=== PATIENT | female | born 1990 | race Two or more races ===

== ENCOUNTER 2017-12-06 19:20 | Emergency (ER) | payer MEDICAID ==
[~2017-12-06] VITALS: Ht 157.5 cm; Wt 48.1 kg
--- NOTE | 2017-12-06 20:43 | NUR ---
PT PRESENTED TO THE ER WITH A C/O RT SIDED ABD/PELVIC PAIN SINCE 1400 TODAY. PT TOOK ADVIL AT 1730 WITH NO RELIEF. PT HAS HX OF LT SIDED OOPHERECTOMY X 2YRS AGO. PT STATED THAT SHE CURRENTLY HAS A CYST ON HER RT OVARY AND IS WORRIED THAT HER PAIN IS DUE TO THAT. PT STATED THE THE PAIN IS 6/10 AND RADIATES TO THE BACK. URINE SAMPLE WAS OBTAINED AND SENT TO LAB.
--- NOTE | 2017-12-06 20:50 | NUR ---
[employer] IS AT THE BEDSIDE FOR BLOOD DRAW.
[2017-12-06 20:55] LABS: BASOPHILS # (AUTO) 0.1 /CMM (0.0-0.2); BASOPHILS % (AUTO) 1.1 % (0.0-2.0); EOSINOPHILS % (AUTO) 0.8 % (0.0-6.0); HEMATOCRIT 38 % (33-45); HEMOGLOBIN 13.2 g/dL (11.5-14.8); LYMPHOCYTES # (AUTO) 1.9 /CMM (0.8-4.8); LYMPHOCYTES % (AUTO) 38.8 % (20.0-44.0); MEAN CORPUSCULAR HEMOGLOBIN 30 PG (26.0-33.0); MEAN CORPUSCULAR HGB CONC 35 g/dl (31.0-36.0); MEAN CORPUSCULAR VOLUME 86 fL (82-100); MONOCYTES # (AUTO) 0.3 /CMM (0.1-1.30); MONOCYTES % (AUTO) 6.7 % (2.0-12.0); NEUTROPHILS # (AUTO) 2.7 /CMM (1.8-8.9); NEUTROPHILS % (AUTO) 52.6 % (43.0-81.0); PLATELET COUNT (AUTO) 202 /CMM (150-450); RED BLOOD CELL COUNT(AUTO) 4.43 MIL/uL (4.0-5.2)
[2017-12-06 20:57] LABS: APPEARANCE,URINE Clear (CLEAR); BILIRUBIN,URINE Negative (NEGATIVE); BLOOD, URINE Negative Ery/uL (NEGATIVE); COLOR,URINE Yellow (YELLOW); KETONES,URINE Trace (NEGATIVE); LEUKOCYTE ESTERASE ,URINE Negative (NEGATIVE); NITRITE, URINE Negative (NEGATIVE); PH,URINE 5.5 (5.0-8.0); PROTEIN,URINE Negative (NEGATIVE); UGLUCOSE Negative (NEGATIVE); UROBILINOGEN,URINE 0.2 EU/dL (0.2)
[2017-12-06 21:03] LABS: BACTERIA,URINE Few /HPF (None Seen); RBC,URINE NONE SEEN /HPF (0-2); SQUAMOUS EPITHELIAL CELL,UR Moderate /HPF (None Seen); WBC,URINE 0-2 /HPF (0-3)
[2017-12-06 21:04] LABS: CALCIUM, SERUM 9.1 mg/dL (8.5-10.1); CREATININE 0.5 mg/dL (0.6-1.3); POTASSIUM 3.8 mmol/L (3.5-5.1)
[2017-12-06 21:10] LABS: ALBUMIN 3.9 g/dL (3.4-5.0); BILIRUBIN,DIRECT 0.1 mg/dL (0.0-0.2); BILIRUBIN,TOTAL 0.3 mg/dL (0.2-1.0); TOTAL PROTEIN, SERUM 7.8 g/dL (6.4-8.2)
--- NOTE | 2017-12-06 21:15 | NUR ---
US IS AT THE BEDSIDE.
[2017-12-06 22:57] VITALS: BP 102/65
== END 2017-12-06 22:58 | disposition home or self-care (01) ==
LOC: ER 19:26
DX: N83.201 Unspecified ovarian cyst, right side (principal); R10.31 Right lower quadrant pain; Z98.890 Other specified postprocedural states
CPT/HCPCS: 36415; 76856-TC; 80048-TC; 80076-TC; 81000-TC; 84703-TC; 85025-TC; A4606; Z7610

== ENCOUNTER 2019-05-15 21:21 | Emergency (ER) | payer MEDICAID ==
[~2019-05-15] VITALS: Ht 157.5 cm; Wt 48.5 kg
[2019-05-15 21:54] VITALS: BP 119/77
[2019-05-15] MEDS ORDERED: ACETAMINOPHEN ES 500 MG TABLET ONE (22:59)
[2019-05-15] MEDS ORDERED: ACETAMINOPHEN ES 500 MG TABLET PO ONE (23:00)
== END 2019-05-15 23:07 | disposition home or self-care (01) ==
LOC: ER 21:21
DX: S09.8XXA Other specified injuries of head, initial encounter (principal); R51 Headache; Z90.721 Acquired absence of ovaries, unilateral; W22.8XXA Striking against or struck by other objects, initial encounter; Y93.89 Activity, other specified; Y92.89 Other specified places as the place of occurrence of the external cause; Y99.8 Other external cause status